=== PATIENT | male | born 1945 | race Caucasian/White ===

== ENCOUNTER 2016-04-26 10:00 | Emergency (ER) | payer MEDICARE ==
[~2016-04-26] VITALS: Ht 177.8 cm; Wt 129.5 kg
[2016-04-26] MEDS ORDERED: GLIPIZIDE5 MG PO (10:18)
[2016-04-26] MEDS ORDERED: LISINOPRIL10 MG PO (10:18)
[2016-04-26] MEDS ORDERED: ISOSORB MONO30 MG PO (10:19)
[2016-04-26] MEDS ORDERED: METFORMIN500 MG PO (10:19)
[2016-04-26] MEDS ORDERED: ATORVASTATIN CA20 MG PO (10:19)
[2016-04-26] MEDS ORDERED: RANEXA PO (10:19)
[2016-04-26] MEDS ORDERED: TRAMADOL HCL50 MG PO (10:20)
[2016-04-26] MEDS ORDERED: XALATAN 0.005%2.5 ML OU (10:20)
[2016-04-26] MEDS ORDERED: ASPIRIN EC81 MG PO (10:20)
[2016-04-26] MEDS ORDERED: TIMOLOL 0.5%5 ML OU (10:21)
[2016-04-26] MEDS ORDERED: PERCOCET 5/325M1 TAB PO (11:52)
[2016-04-26] MEDS ORDERED: EC-NAPROSYN500 MG PO (11:52)
[2016-04-26] MEDS ORDERED: FLEXERIL PO (11:52)
[2016-04-26 12:10] VITALS: BP 149/74
== END 2016-04-26 12:10 | disposition home or self-care (01) ==
LOC: ED 10:00
DX: S33.5XXA Sprain of ligaments of lumbar spine, initial encounter (principal); W17.89XA Other fall from one level to another, initial encounter; Y93.89 Activity, other specified; Y92.008 Other place in unspecified non-institutional (private) residence as the place of occurrence of the external cause

== ENCOUNTER 2016-05-10 09:53 | Emergency (ER) | payer MEDICARE ==
[~2016-05-10] VITALS: Ht 177.8 cm; Wt 129.5 kg
[~2016-05-10 09:53] MED LIST: ASPIRIN EC81 MG PO; ATORVASTATIN CA20 MG PO; EC-NAPROSYN500 MG PO; FLEXERIL PO; GLIPIZIDE5 MG PO; ISOSORB MONO30 MG PO; LISINOPRIL10 MG PO; METFORMIN500 MG PO; PERCOCET 5/325M1 TAB PO; RANEXA PO; TIMOLOL 0.5%5 ML OU; TRAMADOL HCL50 MG PO; XALATAN 0.005%2.5 ML OU
[2016-05-10] MEDS ORDERED: PEPCID20 MG PO (11:46)
[2016-05-10] MEDS ORDERED: MEDDOSEPAK PO (11:46)
[2016-05-10] MEDS ORDERED: ULTRAM50 M1 PO (11:46)
[2016-05-10 11:50] VITALS: BP 139/74
== END 2016-05-10 11:50 | disposition home or self-care (01) ==
LOC: ED 09:53
DX: M54.42 Lumbago with sciatica, left side (principal); E11.9 Type 2 diabetes mellitus without complications; I10 Essential (primary) hypertension; E78.00 Pure hypercholesterolemia, unspecified; M48.06 Spinal stenosis, lumbar region